=== PATIENT | female | born 1990 | race African-American/Black ===

== ENCOUNTER 2022-01-15 16:49 | Emergency (ER) | payer SELFPAY ==
[~2022-01-15] VITALS: Ht 167.6 cm; Wt 79.9 kg
[2022-01-15] MEDS ORDERED: KETOROLAC TROMETHAMINE 30 MG/ML VIAL IM STA (17:32)
[2022-01-15] MEDS ORDERED: KETOROLAC TROMETHAMINE 30 MG/ML VIAL ONE (18:15)
[2022-01-15] MEDS ORDERED: FIORICET 50-301 EACH PO (20:08)
== END 2022-01-15 20:53 | disposition home or self-care (01) ==
LOC: FSED 17:30
DX: R51.9 Headache, unspecified (principal)
CPT/HCPCS: 70450; 81003; 81025; 96372; 99283; J1885

== ENCOUNTER 2022-09-25 12:56 | Emergency (ER) | payer SELFPAY ==
[~2022-09-25] VITALS: Ht 167.6 cm; Wt 79.8 kg
[~2022-09-25 12:56] MED LIST: FIORICET 50-301 EACH PO
[2022-09-25] MEDS ORDERED: IBUPROFEN600 MG PO (13:26)
[2022-09-25] MEDS ORDERED: ACETAMINOPHEN-1 EAC4 PO (13:26)
[2022-09-25] MEDS ORDERED: AMOXICILLIN500 MG PO (13:26)
== END 2022-09-25 13:40 | disposition home or self-care (01) ==
LOC: ER 13:16
DX: K08.89 Other specified disorders of teeth and supporting structures (principal); K02.9 Dental caries, unspecified
CPT/HCPCS: 99283

== ENCOUNTER 2022-12-04 07:59 | Emergency (ER) | payer SELFPAY ==
[~2022-12-04] VITALS: Ht 167.6 cm; Wt 79.8 kg
[~2022-12-04 07:59] MED LIST changes: +ACETAMINOPHEN-1 EAC4 PO; +AMOXICILLIN500 MG PO; +IBUPROFEN600 MG PO
[2022-12-04 08:00] VITALS: O2SAT 100
[2022-12-04] MEDS ORDERED: AMOX TR-K CLV1 EAC2 PO ×2 (08:08→08:14)
[2022-12-04] MEDS ORDERED: NAPROXEN250 MG PO ×2 (08:09→08:14)
== END 2022-12-04 08:20 | disposition home or self-care (01) ==
LOC: ER 08:04
DX: K08.89 Other specified disorders of teeth and supporting structures (principal); K02.9 Dental caries, unspecified
CPT/HCPCS: 99283

== ENCOUNTER 2024-02-12 20:08 | Emergency (ER) | payer SELFPAY ==
[~2024-02-12] VITALS: Ht 167.6 cm; Wt 79.8 kg
[~2024-02-12 20:08] MED LIST changes: +AMOX TR-K CLV1 EAC2 PO; +NAPROXEN250 MG PO
[2024-02-12 22:35] LABS: INFLUENZAE A&B ANTIGEN (RAPID) NEGATIVE (NEGATIVE); RESPIRATORY SYNC. VIRUS NEGATIVE (NEGATIVE); STREPTOCOCCUS GRP A ANTIGEN NEGATIVE (NEGATIVE)
[2024-02-12 23:45] VITALS: PULSE 60; RESP 16; TEMP 98.4; O2SAT 100
== END 2024-02-12 23:44 | disposition home or self-care (01) ==
LOC: ER 20:15
DX: R09.89 Other specified symptoms and signs involving the circulatory and respiratory systems (principal); B34.9 Viral infection, unspecified; Z11.52 Encounter for screening for COVID-19
CPT/HCPCS: 83518; 87070; 87400; 87420; 99283; U0002

== ENCOUNTER 2024-08-24 14:12 | Emergency (ER) | payer BC ==
[~2024-08-24] VITALS: Ht 167.6 cm; Wt 79.8 kg
[2024-08-24 14:12] VITALS: PULSE 75; RESP 16; TEMP 98.6; O2SAT 100
[2024-08-24 14:56] LABS: STREPTOCOCCUS GRP A ANTIGEN NEGATIVE (NEGATIVE)
[2024-08-24 15:02] LABS: CORONAVIRUS COVID-19 AG NEGATIVE (NEGATIVE); INFLUENZA A AG NEGATIVE (NEGATIVE); INFLUENZA B AG NEGATIVE (NEGATIVE)
[2024-08-24] MEDS: DEXAMETHASONE 4 MG TAB PO STA (16:02)
== END 2024-08-24 16:22 | disposition home or self-care (01) ==
LOC: ER 14:34
DX: R05.9 Cough, unspecified (principal); B34.9 Viral infection, unspecified; R09.89 Other specified symptoms and signs involving the circulatory and respiratory systems; Z11.52 Encounter for screening for COVID-19
CPT/HCPCS: 83518; 87070; 87428; 99283; J8540